=== PATIENT | female | born 1960 | race Caucasian/White ===

== ENCOUNTER → 2018-11-26 | Outpatient (REF) | payer BC | LOC: M SFHCPLAZ 17:20 | PROVIDERS: ATTEND Dermatology | DX: D48.5 Neoplasm of uncertain behavior of skin (principal) ==

== ENCOUNTER → 2020-03-18 | Outpatient (CLI) | payer BC ==
[~2020-03-18] MED LIST: CALC600T61 PO; ESSETAB4 PO; TRAM50TA2 PO; VITA500045 PO; VITA500T41 PO
== END ==
LOC: M LABSMTC 10:13
PROVIDERS: ATTEND Anesthesiology
DX: Z01.812 Encounter for preprocedural laboratory examination (principal); Z20.828 Contact with and (suspected) exposure to other viral communicable diseases
CPT/HCPCS: C9803; U0003

== ENCOUNTER → 2020-03-21 | Outpatient (CLI) | payer BC ==
[~2020-03-21] MED LIST changes: +ISOVUE-300 61% 50ML VIAL As Ordered ONE; +LIDOCAINE 1% MDV 20ML VIAL As Ordered ONE; +LIDOCAINE W/EPINEPHRINE 1% 20ML VIAL As Ordered ONE; +MIDAZOLAM INJ 2MG/2ML VIAL (J2250 PER 1MG) As Ordered ONE; +ONDANSETRON 4MG/2ML VIAL As Ordered ONE; +ceFAZolin 1GM VIAL (J0690 PER 500MG) As Ordered ONE; +diphenhydrAMINE 50MG/ML VIAL (J1200) As Ordered ONE; +fentaNYL 100 MCG/2 ML INJECTION (J3010) As Ordered ONE
--- NOTE | 2020-03-21 14:18 | POST-OPPD ---
Postoperative Procedure Note Date Of Procedure: Mar 21, 2020 Time Of Procedure: 14:11 Percutaneous nephroureteral catheter placement using fluoroscopic and ultrasound guidance Nephrostogram and Ureterogram Ultrasound of the left kidney Clinical Information:Left kidney stone. Requires access for PCNL. Physician: Dr. Espinosa Procedure: The patient was advised of the benefits, risks, and alternatives of the procedure and informed consent was obtained. A time out was performed with verification of the patient's name, MRN, site of procedure, and type of procedure to be performed. The patient was positioned in the prone position on the angiographic table. The site was prepped and draped in the usual sterile fashion. Moderate sedation was performed by the physician including the presence of an independent trained observer who assisted in monitoring the patient's level of consciousness and physiological status. Following the administration of fentanyl and Versed the physician spent 45 minutes of continuous [id number] time with the patient. A bilingual sales assistant radiograph radiopaque densities projecting over the region of the left kidney. The anticipated puncture site on the flank was anesthetized with lidocaine. Using ultrasound guidance, a posterior lower pole calyx was accessed with a 21 Gauge Chiba needle. A nephrostogram and ureterogram were performed demonstrating hydronephrosis and delayed passage through the ureter. A [place] wire was then advanced into the collecting system and negotiated down the ureter. The needle was then exchanged for a nonvascular introducer set. An Amplatz wire was then advanced under fluoroscopy guidance, into the renal collecting system and negotiated down the ureter into the bladder.A 6 Greek Siedmon nephroureteral catheter was then advanced over the wire, under fluoroscopy guidance, into the bladder. The wire was removed. A final nephrostogram and ureterogram were performed confirming positioning of the nephroureteral catheter in the left renal collecting system, ureter and in the bladder. No extravasation. The catheter was sutured in position with 2-0 Prolene and a sterile dressing applied. The patient tolerated the procedure well and was returned to the PRU in stable condition. EBL: < 5 mL. Complications:None Conclusion: 1. Nephrostogram and Ureterogram demonstratelarge calculi in the left renal collecting system with hydronephrosis. Decompressed ureter patent to the bladder. 2. Successful left-sided nephroureteral catheter placement for PCNL access. Patient to follow-up on Saturday for PCNL. Thank you for this referral KAREN ESPINOSA MD Mar 21, 2020 14:18
--- NOTE | 2020-03-21 14:19 | IRHP ---
[facility] IR Pre-Procedure H & P General Date of Service: Mar 21, 2020 Procedure: Same Day Surgery Interval History and Physical I have seen the patient and reviewed last H & P performed within 30 days. There is no significant interval change. History of Present Illness Chief Complaint The patient is a 59-year-old female admitted with a reason for visit of Nephrolithiasis. PRE-PROCEDURE DIAGNOSIS: kidney stone HEART: normal rate. LUNGS: normal breathing at rest. ASA Classification ASA Classification: III-Severe systemic dis. Mallampati Score: II NPO: Yes Problems with prior sedation: No Obstructive Sleep Apnea: No Plan moderate sedation Allergies Coded Allergies: morphine (Verified Allergy, Unknown, low bp, 03/16/20) Home Medications Scheduled Calcium Carbonate (Calcium), 600 MG PO BID, (Reported) Cyanocobalamin (Vitamin B-12) (Vitamin B-12), 500 MCG PO DAILY, (Reported) Ergocalciferol (Vitamin D2) (Vitamin D2), 1,250 MCG PO DAILY, (Reported) Multivitamin with Folic Acid (One Daily Multivitamin Tablet), 1 TAB PO DAILY, (Reported) Scheduled PRN Tramadol HCl (Tramadol HCl), 1 TAB PO Q6HP PRN for pain, (Reported) VS, I&O, 24H, Fishbone Vital Signs/I&O Vital Signs Date Time Temp Pulse Resp B/P (MAP) Pulse Ox O2 Delivery O2 Flow Rate FiO2 03/21/20 14:10 58 16 100 Room Air 03/21/20 13:32 2 03/21/20 11:47 98.4 KAREN ZAMORA MD Mar 21, 2020 14:19
[2020-03-21 15:10] VITALS: BP 157/76
== END ==
LOC: M IRPRO 11:24
PROVIDERS: ATTEND Radiology Diagnostic Radiology
DX: N20.0 Calculus of kidney (principal); Z88.5 Allergy status to narcotic agent
CPT/HCPCS: 50433; 99152; 99153; C1769; C1894; J0690; J1200; J2250; J2405; J3010; Q9967

== ENCOUNTER 2020-03-23 09:07 | Inpatient (IN) | payer BC ==
[2020-03-23] VITALS (7 sets, daily range): BP systolic 110–134; BP diastolic 55–66
[~2020-03-23] VITALS: Ht 157.5 cm; Wt 73.9 kg
[~2020-03-23 09:07] MED LIST changes: -ISOVUE-300 61% 50ML VIAL As Ordered ONE; -LIDOCAINE 1% MDV 20ML VIAL As Ordered ONE; -LIDOCAINE W/EPINEPHRINE 1% 20ML VIAL As Ordered ONE; +LR 1,000 ML IV ONE; -MIDAZOLAM INJ 2MG/2ML VIAL (J2250 PER 1MG) As Ordered ONE; -ONDANSETRON 4MG/2ML VIAL As Ordered ONE; -ceFAZolin 1GM VIAL (J0690 PER 500MG) As Ordered ONE; +ceFAZolin SOD 2 GM in IV 1 EA IV ONE; -diphenhydrAMINE 50MG/ML VIAL (J1200) As Ordered ONE; -fentaNYL 100 MCG/2 ML INJECTION (J3010) As Ordered ONE
[2020-03-23] MEDS ORDERED: ceFAZolin 2 GM/D5W 50 ML IV BAG (J0690 PER 500MG) As Ordered ONE (10:43)
[2020-03-23] MEDS ORDERED: CONRAY-60 60% 50ML VIAL (Q9961) As Ordered ONE (10:44)
[2020-03-23] MEDS ORDERED: MIDAZOLAM INJ 2MG/2ML VIAL (J2250 PER 1MG) As Ordered ONE (11:41)
[2020-03-23] MEDS ORDERED: ROCURONIUM BROMIDE 50 MG/5 ML VIAL As Ordered ONE (11:42)
[2020-03-23] MEDS ORDERED: fentaNYL 250 MCG/5 ML INJECTION (J3010) As Ordered ONE (11:42)
[2020-03-23] MEDS ORDERED: LIDOCAINE 2% 100MG/5ML SDV (FOR ANES.) As Ordered ONE (11:42)
[2020-03-23] MEDS ORDERED: dexameTHASONE 4 MG/ML 1ML VIAL (J1100 PER 1MG) As Ordered ONE (11:42)
[2020-03-23] MEDS ORDERED: ONDANSETRON 4MG/2ML VIAL As Ordered ONE (11:42)
[2020-03-23] MEDS ORDERED: SUGAMMADEX SODIUM 500 MG/5 ML VIAL (BRIDION) As Ordered ONE (11:42)
[2020-03-23] MEDS ORDERED: propofoL 200 MG/20 ML VIAL As Ordered ONE ×2 (11:42→11:46)
[2020-03-23] MEDS ORDERED: ePHEDrine SULFATE 25 MG/5 ML(5MG/ML) SYRINGE As Ordered ONE ×2 (12:44→14:06)
[2020-03-23] MEDS ORDERED: PHENYLephrine HCL 500 MCG/5 ML (100MCG/ML) SYRINGE (J2370) As Ordered ONE (12:44)
[2020-03-23] MEDS ORDERED: ACETAMINOPHEN 1000MG 100ML IV BTL (OFIRMEV) (J0131 PER 10MG) As Ordered ONE (12:53)
[2020-03-23] MEDS ORDERED: LABETALOL 100MG/20ML VIAL As Ordered ONE (13:17)
[2020-03-23] MEDS ORDERED: fentaNYL 100 MCG/2 ML INJECTION (J3010) As Ordered ONE (16:02)
[2020-03-23] MEDS ORDERED: HYDROMORPHONE HCL 0.5 MG/ 0.5 ML SYRINGE (J1170 PER 1) As Ordered ONE ×2 (16:02→16:48)
[2020-03-23] MEDS: fentaNYL 100 MCG/2 ML INJECTION (J3010) IV PRN ×2 (16:05→16:20)
[2020-03-23] MEDS ORDERED: ONDANSETRON 4MG/2ML VIAL IV PRN ×2 (16:15→17:00)
[2020-03-23] MEDS ORDERED: PERCOCET 5MG/325MG TAB PO PRN ×2 (16:15)
[2020-03-23] MEDS: HYDROMORPHONE HCL 0.5 MG/ 0.5 ML SYRINGE (J1170 PER 1) IV PRN ×3 (16:15→16:50)
[2020-03-23 16:56] LABS: BLOOD UREA NITROGEN 13 MG/DL (7-18); CALCIUM LEVEL 7.9 MG/DL (8.8-10.2); CARBON DIOXIDE LEVEL 22 MEQ/L (21-32); CHLORIDE LEVEL 114 MEQ/L (98-107); CREATININE FOR GFR 0.76 MG/DL (0.55-1.30); GLOMERULAR FILTRATION RATE > 60.0 (>45); GLUCOSE, FASTING 144 MG/DL (70-100); POTASSIUM SERUM 3.5 MEQ/L (3.5-5.1); SODIUM LEVEL 143 MEQ/L (136-145)
[2020-03-23 16:59] LABS: HEMATOCRIT 34.2 % (36.0-47.0); HEMOGLOBIN 9.9 g/dl (12.0-15.5); MEAN CORPUSCULAR HGB CONC 28.9 g/dl (32.0-36.5); MEAN CORPUSCULAR VOLUME 86.4 fl (80.0-96.0); PLATELET COUNT, AUTOMATED 404 10^3/uL (150-450); RED BLOOD COUNT 3.96 10^6/uL (4.00-5.40); WHITE BLOOD COUNT 10.7 10^3/uL (4.0-10.0)
[2020-03-23] MEDS ORDERED: LR 1,000 ML IV SCH (17:00)
[2020-03-23] MEDS ORDERED: oxyCODONE 5MG TAB PO PRN (17:00)
--- NOTE | 2020-03-23 17:34 | ROOPDOC ---
[facility] Report Of Operation Report of Operation DATE OF PROCEDURE: 03/23/20 PREPROCEDURE DIAGNOSIS: Left kidney stones. POSTPROCEDURE DIAGNOSIS: Left kidney stones. PROCEDURE: Left percutaneous nephrolithotomy, left antegrade nephrostogram with intraoperative interpretation of images, left ureteral stent placement. SURGEON: Dr. Ismael Chatman RESIDENCE LIFE COORDINATOR: None ANESTHESIA: General. OPERATIVE INDICATIONS: This is a 59-year-old female who was recently found to have 5-6 left sided kidney stones, each measuring approximately 1.5cm in size. It was recommended she be brought to the operating room for the above-listed procedure. DESCRIPTION OF PROCEDURE: The patient brought to the operating room, and general anesthesia was induced. Prophylactic antibiotics were infused. A Zelaya catheter was then placed under sterile conditions. The patient was then repositioned in the prone position in preparation for a left-sided percutaneous nephrolithotomy. The patient was then prepped and draped in the usual sterile fashion. At this point, the previously-placed left nephroureteral catheter was utilized to advance a Motion guidewire down the left collecting system and into the bladder. The nephroureteral catheter was then removed, leaving the wire in place. Next, a 2-3 cm transverse incision was made adjacent to the wire. A dual-lumen ureteral catheter was then advanced down into the left renal pelvis. An antegrade nephrostogram was performed to outline the calyces of the kidney. There was no extravasation and no hydronephrosis. An Amplatz Super Stiff wire was then advanced down the left collecting system and into the bladder. The dual-lumen ureteral catheter was then removed, leaving both wires in place. The Super Stiff wire was then secured to the drape to serve as a safety wire. Next, over the Sensor wire, a balloon dilator was advanced into the left renal pelvis. The balloon was then inflated and left in place for a few seconds. Next, an access sheath was advanced over the balloon into the left renal pelvis. The balloon was then let down and removed, leaving the access sheath and the wire in place. At this point, a nephroscope was introduced into the left renal pelvis. No stones were seen in the renal pelvis. After several minutes I was able to locate the large stones in the lower pole calyces. Each of these stones was fragmented using a CyberWand and several fragments were suctioned out. Any large fragments remaining in the lower pole calyces were removed using a Perc NCircle basket. The large stones in the upper pole calyces were difficult to access as our access sheath entered through the mid pole of the kidney. I was ultimately able to locate the stones in the upper pole calyces. They were fragmented with the CyberWand and some of the fragments were suctioned out. I tried to use the basket to remove the remaining large fragments and I was only able to get some of them as it became increasingly more difficult to navigate the scope back to the upper pole each time. Once done, there did appear to be at least 2 fragments remaining in the upper pole, likely measuring 6-7mm in size. Next a #7-Filipino x 22-32 cm double J ureteral stent was advanced down into the left collecting system over the wire. The Motion wire was then removed, and there were adequate curls of the stent in the left renal pelvis and in the bladder. At this point, the access sheath was removed, and the Super Stiff wire was utilized to advance a #18-Filipino Platinum tip catheter down into the left collecting system. After the tip was within the renal pelvis, the balloon was inflated with about 3 mL of contrast. We then secured the Platinum tip catheter to the skin with a #2-0 silk suture. This was then connected to gravity drainage and marked the conclusion of the procedure. The patient was placed back in supine position, awakened from anesthesia, and transported to the recovery room in stable condition. ESTIMATED BLOOD LOSS: approximately 100 mL COMPLICATIONS: None. SPECIMENS: Left kidney stone fragments. PLAN: The patient will be admitted to the hospital postoperatively. I will likely remove her left nephrostomy catheter tomorrow, and if her labs are stable and urine output is clear, I will also remove the Zelaya catheter. She will be discharged home with the stent in place and will need to be brought back to the operating room in approximately 6 weeks for a left ureteroscopy with laser lithotripsy to remove the remaining stone fragments in the upper pole of the kidney. ISMAEL CHATMAN MD Mar 23, 2020 17:34
[2020-03-23] MEDS: NS 1,000 ML IV SCH (18:20)
[2020-03-23] MEDS ORDERED: oxyBUTYnin 5 MG TAB PO PRN (20:15)
[2020-03-23] MEDS: ceFAZolin SOD 1 GM in D5W MINI-BAG PLUS 50 ML IV SCH (20:18)
[2020-03-23] MEDS: DOCUSATE SODIUM 100 MG CAP PO SCH (20:18)
[2020-03-23] MEDS: ACETAMINOPHEN TAB 650MG DOSE (2X325MG) PO PRN (20:19)
[2020-03-24 00:29] VITALS: O2SAT 91
[2020-03-24 02:00] VITALS: BP 124/83
[2020-03-24] MEDS: ACETAMINOPHEN TAB 650MG DOSE (2X325MG) PO PRN (02:33)
[2020-03-24] MEDS: NS 1,000 ML IV SCH (04:37)
[2020-03-24] MEDS: ceFAZolin SOD 1 GM in D5W MINI-BAG PLUS 50 ML IV SCH (04:38)
[2020-03-24 06:00] VITALS: BP 105/57
[2020-03-24 06:40] LABS: HEMATOCRIT 27.2 % (36.0-47.0); HEMOGLOBIN 7.9 g/dl (12.0-15.5); MEAN CORPUSCULAR HEMOGLOBIN 24.9 pg (27.0-33.0); MEAN CORPUSCULAR VOLUME 85.8 fl (80.0-96.0); PLATELET COUNT, AUTOMATED 329 10^3/uL (150-450); RED BLOOD COUNT 3.17 10^6/uL (4.00-5.40); WHITE BLOOD COUNT 8.2 10^3/uL (4.0-10.0)
[2020-03-24 07:09] LABS: BLOOD UREA NITROGEN 9 MG/DL (7-18); CALCIUM LEVEL 7.7 MG/DL (8.8-10.2); CARBON DIOXIDE LEVEL 24 MEQ/L (21-32); CHLORIDE LEVEL 115 MEQ/L (98-107); CREATININE FOR GFR 0.54 MG/DL (0.55-1.30); GLOMERULAR FILTRATION RATE > 60.0 (>45); GLUCOSE, FASTING 98 MG/DL (70-100); SODIUM LEVEL 144 MEQ/L (136-145)
--- NOTE | 2020-03-24 08:20 | IPNPDOC ---
Subjective Review oF Systems Chief Complaint The patient is a 59-year-old female admitted with a reason for visit of Nephrolithiasis. Events since Last Encounter No acute events o/n. Had some difficulty w/ pain control o/n, but better this morning. No n/v. No f/c/ns. Objective Physical Examination General Exam: Alert, Cooperative, No Acute Distress ABDOMEN EXAM: Soft Skin Exam: Nl turgor and temperature Neuro Exam: Normal Speech Psych Exam: Mental status NL, Mood NL Other physical findings L nephrostomy catheter draining light red urine w/o clots; urethral catheter w/ small amount of clear yellow urine in the tubing and bag Vital Signs/I&O Vital Signs Date Time Temp Pulse Resp B/P (MAP) Pulse Ox O2 Delivery O2 Flow Rate FiO2 03/24/20 06:00 96.1 88 18 105/57 (73) 93 03/24/20 05:08 Room Air 03/23/20 17:00 2 I&O- Last 24 Hours up to 6 AM 03/24/20 06:00 Intake Total 4490 ml Output Total 1075 ml Balance 3415 ml Laboratory Data Labs 24H Laboratory Tests 2 03/23/20 16:13: Nucleated Red Blood Cells % (auto) 0.0, Anion Gap 7L, Glomerular Filtration Rate > 60.0, Calcium Level 7.9L 03/24/20 05:36: Nucleated Red Blood Cells % (auto) 0.0, Anion Gap 5L, Glomerular Filtration Rate > 60.0, Calcium Level 7.7L CBC/BMP Laboratory Tests 03/23/20 16:13 03/24/20 05:36 Assessment/Plan Date Seen The patient was seen on 03/24/20. Patient Summary This is a 59 y/o F POD1 s/p L PCNL. She feels well this morning. Her Hb drifted down to 7.9 (was 10.7 on preop labs), which is likely due to a combination of intraop blood loss and hemodilution from IVF. Vitals are stable. UOP is good (mainly coming out of the L nephrostomy tube - suspect the urine from the R kidney has been refluxing up the stent and then out of the L nephrostomy tube). Cr 0.5. Plan/VTE VTE Prophylaxis Ordered?: Yes VTE Exclusion Mechanical Proph: N/A:VTE Prophy Ordered Plan/Urinary Catheter Urinary Catheter: Other Catheter: (will d/c Zelaya later today) Plan - L nephrostomy catheter removed this morning - will d/c Zelaya in a few hours as long as there is not a significant increase in hematuria - repeat Hb at 2pm - ambulate - d/c IVF - strict I/Os - SCDs when in bed - possible discharge home later today if Hb is stable to improved and no difficulty ambulating ISMAEL CHATMAN MD Mar 24, 2020 08:20
[2020-03-24] MEDS: DOCUSATE SODIUM 100 MG CAP PO SCH (10:05)
[2020-03-24] MEDS ORDERED: TRAM50TA2 PO (15:27)
--- NOTE | 2020-03-30 11:04 | REP ---
C-ARM VIEWS ABDOMEN AND PELVIS HISTORY: Nephrolithiasis. TECHNIQUE: Multiple C-arm views of the abdomen and pelvis are performed. FINDINGS: There are multiple left renal calculi, approximately five are noted. There appears to be a left nephrostomy tube. There is a left ureteral catheter on the final two images. The proximal end is coiled in the region of the left renal pelvis. The distal end is coiled in the region of the urinary bladder. 2 minutes 18 seconds fluoroscopy time was utilized. MTDD
--- NOTE | 2020-04-04 12:47 | DS ---
DATE OF ADMISSION: March 23, 2020 DATE OF DISCHARGE: March 24, 2020 ADMISSION DIAGNOSIS: Left kidney stones. DISCHARGE DIAGNOSIS: Left kidney stones. ADMITTING PHYSICIAN: Fadi Long MD DISCHARGE PHYSICIAN: Fadi Long MD PROCEDURE PERFORMED: Left percutaneous nephrolithotomy on March 23, 2020. HISTORY OF PRESENT ILLNESS: This is a 59-year-old female who was found to have several large kidney stones measuring over 1.5 cm each on recent CAT scan. She underwent the above listed procedure for treatment. She was admitted to the hospital postoperatively. HOSPITALIZATION COURSE: The patient was admitted to the hospital after undergoing the above listed procedure. Her postoperative course was unremarkable. On post op day 1, she had very good pain control. Of note, her labs were notable for serum hemoglobin of 7.9, which was down from 9.9 on the day previously. This was deemed to be related to hemodilution from IV fluids, as well as some postoperative blood loss. Her hemoglobin level was rechecked on the afternoon of post op day 1 and had come up to 8.8. Her vital signs remained stable during this time. She had good urine output from her nephrostomy tube and that was removed the morning of post op day 1. After that was removed, we monitored the output from her Zelaya catheter and she did not have a significant increase in the hematuria. Her Zelaya catheter was therefore, removed. She subsequently voided without any difficulty. She ambulated well and was tolerating a regular diet. She was deemed ready for discharge to home on post op day 1. She was discharged home with the ureteral stent in place in her left kidney. We will have her follow up in the Urology Clinic in approximately two weeks. At that time, we will get her set up for a left ureteroscopy and laser lithotripsy to remove the remainder of her stones in her left kidney. WYATT
[2020-04-04 14:07] LABS: CA Oxalate Dihy 20 % (.); Ca Ox Monohydrate 80 % (.); Size 6x8 mm (.)
== END 2020-03-24 16:40 | disposition home or self-care (01) | DRG 443 ==
LOC: M OR 10:17 → M MSPAV 18:00
PROVIDERS: ADMIT Urology; ATTEND Urology
PROC: 0T9130Z Drainage of Left Kidney with Drainage Device, Percutaneous Approach (ICD-10-PCS; 2020-03-23)
PROC: 0T748DZ Dilation of Left Kidney Pelvis with Intraluminal Device, Via Natural or Artificial Opening Endoscopic (ICD-10-PCS; 2020-03-23)
PROC: 0TC18ZZ Extirpation of Matter from Left Kidney, Via Natural or Artificial Opening Endoscopic (ICD-10-PCS; principal; 2020-03-23 12:00)
DX: N20.0 Calculus of kidney (principal)

== ENCOUNTER → 2020-05-01 | Outpatient (CLI) | payer BC ==
[~2020-05-01] MED LIST changes: -LR 1,000 ML IV ONE; -ceFAZolin SOD 2 GM in IV 1 EA IV ONE
== END ==
LOC: M LABSMTC 11:20
PROVIDERS: ATTEND Anesthesiology
DX: Z01.812 Encounter for preprocedural laboratory examination (principal); Z20.828 Contact with and (suspected) exposure to other viral communicable diseases
CPT/HCPCS: C9803; U0003

== ENCOUNTER 2020-05-06 07:07 | Day surgery (SDC) | payer BC ==
[~2020-05-06] VITALS: Ht 157.5 cm; Wt 76.8 kg
[~2020-05-06 07:07] MED LIST changes: +LR 1,000 ML IV ONE; +ceFAZolin SOD 2 GM in IV 1 EA IV ONE
[2020-05-06] MEDS ORDERED: CONRAY-60 60% 50ML VIAL (Q9961) As Ordered ONE (07:38)
[2020-05-06] MEDS ORDERED: dexameTHASONE 4 MG/ML 1ML VIAL (J1100 PER 1MG) As Ordered ONE (08:15)
[2020-05-06] MEDS ORDERED: LIDOCAINE 2% 100MG/5ML SDV (FOR ANES.) As Ordered ONE (08:15)
[2020-05-06] MEDS ORDERED: fentaNYL 100 MCG/2 ML INJECTION (J3010) As Ordered ONE ×2 (08:15→10:10)
[2020-05-06] MEDS ORDERED: propofoL 200 MG/20 ML VIAL As Ordered ONE (08:15)
[2020-05-06] MEDS ORDERED: ONDANSETRON 4MG/2ML VIAL As Ordered ONE (08:15)
[2020-05-06] MEDS ORDERED: MIDAZOLAM INJ 2MG/2ML VIAL (J2250 PER 1MG) As Ordered ONE (08:16)
[2020-05-06] MEDS ORDERED: KETOROLAC 60MG 2ML VIAL As Ordered ONE (08:36)
[2020-05-06] MEDS ORDERED: ACETAMINOPHEN 1000MG 100ML IV BTL (OFIRMEV) (J0131 PER 10MG) As Ordered ONE (10:01)
[2020-05-06] MEDS ORDERED: LABETALOL 100MG/20ML VIAL As Ordered ONE (10:10)
--- NOTE | 2020-05-06 10:54 | REP ---
INDICATION: CYSTOSCOPY. COMPARISON: None. TECHNIQUE: Two C-arm views abdomen performed. FINDINGS: A left ureteral stent is placed. The proximal end is coiled in the left pelvocaliceal system, which is partially opacified with contrast and is somewhat dilated. The distal end is coiled in the urinary bladder. IMPRESSION: 26 seconds fluoroscopy time utilized. <Electronically signed by Sony Rojo > 05/06/20 [id number]
[2020-05-06] MEDS ORDERED: LR 1,000 ML IV SCH (11:15)
[2020-05-06] MEDS ORDERED: oxyCODONE 5MG TAB PO PRN (11:15)
[2020-05-06] MEDS ORDERED: fentaNYL 100 MCG/2 ML INJECTION (J3010) IV PRN (11:15)
[2020-05-06] MEDS ORDERED: ONDANSETRON 4MG/2ML VIAL IV PRN (11:15)
[2020-05-06] MEDS ORDERED: PERCOCET 5MG/325MG TAB PO PRN (11:30)
[2020-05-06 12:47] VITALS: BP 143/84
--- NOTE | 2020-05-10 09:36 | RO ---
DATE OF OPERATION: 05/06/2020 PREOPERATIVE DIAGNOSIS: Left kidney stones. POSTOPERATIVE DIAGNOSIS: Left kidney stones. PROCEDURES: 1. Cystoscopy. 2. Left ureteroscopy with laser lithotripsy and basket extraction of stones. 3. Left retrograde pyelogram with intraoperative interpretation of images. 4. Left ureteral stent exchange. SURGEON: Fadi Long MD. TC OPERATOR: None. ANESTHESIA: General. OPERATIVE INDICATIONS: This is a 59-year-old female who underwent left percutaneous nephrolithotomy approximately two months ago. At the end of that procedure she still had some stones left that I could not reach using that access. She is brought back to the operating room today to remove the remainder of her stones. DESCRIPTION OF PROCEDURE: The patient was brought to the operating room and general anesthesia was induced. Prophylactic antibiotics were infused. She was placed in the dorsal lithotomy position, prepped and draped in the usual sterile fashion. A rigid cystoscope was inserted into the urethral meatus and advanced into the bladder. The previously placed left ureteral stent was grasped and withdrawn until the distal end was protruding from the urethral meatus. A guidewire was advanced up the left collecting system and the stent was removed. A ureteral access sheath was advanced up the left collecting system. I went up the access sheath with a flexible ureteroscope and I examined the left kidney thoroughly. Of note, the patient had about four or five stones in her low pole calyx that each measured around 7 or 8 mm in size. These stones were repositioned into a mid pole calyx to make them easier to fragment. Once that was done a 272 micron laser fiber was utilized to fragment all the stones into smaller pieces. All the fragments were then removed using a basket. Once satisfied all the stone fragments were removed a retrograde pyelogram was performed and was notable for moderate left hydronephrosis with no extravasation. The ureteroscope was then removed along with the access sheath and no additional stones were seen inside the ureter. I then utilized the guidewire to advance a 6-Urdu x 22-32 cm JJ ureteral stent up the left collecting system. The wire was removed and there were adequate curls of the stent in left renal pelvis and in the bladder. The bladder was emptied of all fluids and this marked conclusion of the procedure. The patient was taken out of the dorsal lithotomy position, awakened from anesthesia, and transferred to the recovery room in stable condition. ESTIMATED BLOOD LOSS: 5 mL. COMPLICATIONS: None. SPECIMEN: Kidney stones. PLAN: Patient will follow up in urology clinic in a week or two for stent removal. WYATT
== END 2020-05-06 12:51 | disposition home or self-care (01) ==
LOC: M SDC 07:07
PROVIDERS: ATTEND Urology
DX: N20.0 Calculus of kidney (principal); D64.9 Anemia, unspecified; Z79.899 Other long term (current) drug therapy; Z88.5 Allergy status to narcotic agent
CPT/HCPCS: 52356; 74420; 82365; 88300; C1769; C1894; C2617; J0131; J0690; J1100; J1885; J2250; J2405; J3010; Q9961

== ENCOUNTER 2023-06-03 08:09 | Day surgery (SDC) | payer BC, OTHER ==
[~2023-06-03] VITALS: Ht 157.5 cm; Wt 79.7 kg
[~2023-06-03 08:09] MED LIST changes: +FERR325T81 PO; -LR 1,000 ML IV ONE; +MECL-86 PO; +NS 1,000 ML IV ONE; +SERT50TA29 PO; -ceFAZolin SOD 2 GM in IV 1 EA IV ONE
[2023-06-03] MEDS ORDERED: propofoL 500 MG/50 ML VIAL As Ordered ONE (08:42)
[2023-06-03] MEDS ORDERED: LIDOCAINE 2% 100MG/5ML SDV (FOR ANES.) As Ordered ONE (08:42)
[2023-06-03] MEDS ORDERED: fentaNYL 100 MCG/2 ML INJECTION As Ordered ONE (08:43)
[2023-06-03 09:49] VITALS: TEMP 97
[2023-06-03 10:09] VITALS: BP 124/60; O2SAT 100
== END 2023-06-03 10:15 | disposition home or self-care (01) ==
LOC: M OPP 08:09
PROVIDERS: ATTEND Internal Medicine Gastroenterology
DX: D12.6 Benign neoplasm of colon, unspecified (principal); K64.4 Residual hemorrhoidal skin tags; K64.8 Other hemorrhoids; D50.9 Iron deficiency anemia, unspecified; Z98.84 Bariatric surgery status; K22.89 Other specified disease of esophagus; Z79.1 Long term (current) use of non-steroidal anti-inflammatories (NSAID); Z79.899 Other long term (current) drug therapy; Z88.5 Allergy status to narcotic agent
CPT/HCPCS: 43239; 45380; 45385; 88305; J3010

== ENCOUNTER 2025-01-04 11:57 | Day surgery (SDC) | payer MEDICARE ==
[~2025-01-04] VITALS: Ht 157.5 cm; Wt 82.9 kg
[~2025-01-04 11:57] MED LIST changes: +ERGO500029 PO; -NS 1,000 ML IV ONE; +OMEP-173 PO
[2025-01-04] MEDS ORDERED: GLYCOPYRROLATE INJ 0.2 MG/ML 2 ML VIAL As Ordered ONE (12:58)
[2025-01-04] MEDS ORDERED: LIDOCAINE 2% 100 MG/5 ML SDV (FOR ANES.) As Ordered ONE (12:58)
[2025-01-04 13:22] VITALS: TEMP 97.3
[2025-01-04 13:39] VITALS: BP 154/96; O2SAT 92
== END 2025-01-04 13:39 | disposition home or self-care (01) ==
LOC: M OPP 11:57
PROVIDERS: ATTEND Internal Medicine Gastroenterology
DX: K22.70 Barrett's esophagus without dysplasia (principal); Z98.84 Bariatric surgery status; G47.30 Sleep apnea, unspecified; Z88.5 Allergy status to narcotic agent; Z79.899 Other long term (current) drug therapy
CPT/HCPCS: 43239; 88305; J1596